=== PATIENT | female | born 1975 | race Caucasian/White ===

== ENCOUNTER 2017-07-22 10:39 | Emergency (ER) | payer MEDICARE, OTHER, SELFPAY ==
[2017-07-22 10:39] VITALS: BP 121/69; PULSE 101; RESP 16; TEMP 37.1; O2SAT 100; BMI 23.6
[2017-07-22] MEDS: Tetracaine 0.5% Ophthalmic Bottle 1 DRP EACH EYE (11:08)
--- NOTE | 2017-07-22 13:39 | NURSING ---
PAGED DR CORNEJO FOR DR MIR
--- NOTE | 2017-07-22 14:02 | ED.VISSUMM ---
- ER Visit Summary Date of Service: 07/22/17 Chief Complaint: Right eye pain, redness and drainage History of Present Illness: The patient is a 42 F who presents with right eye pain that started last evening. She removed her contact lenses. She states she has extended wear lenses. She leaves the lenses in for 1 month. She denied any colored drainage. She combines of a pressure sensation. There is no history of glaucoma. She does report light sensitivity. She denies headache, nausea or vomiting. There is no history of trauma. Please read written note for complete detail Physical Examination: Vital signs are remarkable heart rate 101. Visual acuity is 20/70 right eye, 20/200 left eye and 20/70 both eyes. The right eye is injected. These sclera is anicteric. The conjunctivae is slightly injected. There is no purulent drainage noted. There is photophobia to direct light but not consensual light. There is no preauricular lymphadenopathy. There is no evidence of a preseptal cellulitis. Slit-lamp examination was performed without use of floor seen since there is a national shortage. There is a circular corneal ulcer noted approximately 5:00 4-5 mm from the limbal border. There is no flare or cells noted anterior chamber. Test Results: None Emergency Department Course and Treatment: Visual acuity, slit-lamp examination and treatment with gentamicin Treatment Plan: Gentamicin ophthalmic drops 1-2 drops every 2-4 hours while awake and follow-up appointment with Dr. Laura Disposition: Charge to home. Patient has been told to call Dr. Laura's office after leaving the emergency department for an appointment tomorrow morning. Impression: Corneal ulcer secondary to extended-wear contacts This note was generated with [employer] dictation software. It may contain incorrect words, spelling, and punctuation that were not noted in review of the chart prior to signing ED Disposition - Plan for ED Patient: Disposition: Home or Assisted Living Chief Complaint: Eye Problem Instructions: ED Ulcer Cornea Referrals: Jesus Finch MD [Primary Care Provider] - Deng Laura MD [STAFF PHYSICIAN] - 1 Day for another exam Additional Instructions: Call Dr. Laura's office after leaving department for an appointment tomorrow morning. Instill 1-2 drops of gentamicin ophthalmic solution every 2-4 hours while awake
--- NOTE | 2017-07-22 14:09 | ED.DCSUM_ITS ---
- ER Visit Summary Date of Service: 07/22/17 Chief Complaint: Right eye pain, redness and drainage History of Present Illness: The patient is a 42 F who presents with right eye pain that started last evening. She removed her contact lenses. She states she has extended wear lenses. She leaves the lenses in for 1 month. She denied any colored drainage. She combines of a pressure sensation. There is no history of glaucoma. She does report light sensitivity. She denies headache , nausea or vomiting. There is no history of trauma. Please read written note for complete detail Physical Examination: Vital signs are remarkable heart rate 101. Visual acuity is 20/70 right eye, 20/200 left eye and 20/70 both eyes. The right eye is injected. These sclera is anicteric. The conjunctivae is slightly injected. There is no purulent drainage noted. There is photophobia to direct light but not consensual light. There is no preauricular lymphadenopathy. There is no evidence of a preseptal cellulitis. Slit-lamp examination was performed without use of floor seen since there is a national shortage. There is a circular corneal ulcer noted approximately 5:00 4 -5 mm from the limbal border. There is no flare or cells noted anterior chamber. Test Results: None Emergency Department Course and Treatment: Visual acuity, slit-lamp examination and treatment with gentamicin Treatment Plan: Gentamicin ophthalmic drops 1-2 drops every 2-4 hours while awake and follow-up appointment with Dr. Laura Disposition: Charge to home. Patient has been told to call Dr. Laura's office after leaving the emergency department for an appointment tomorrow morning. Impression: Corneal ulcer secondary to extended-wear contacts This note was generated with [employer] dictation software. It may contain incorrect words, spelling, and punctuation that were not noted in review of the chart prior to signing ED Disposition - Plan for ED Patient: Disposition: Home or Assisted Living Chief Complaint: Eye Problem Instructions: ED Ulcer Cornea Referrals: Jesus Finch MD [Primary Care Provider] - Deng Laura MD [STAFF PHYSICIAN] - 1 Day for another exam Additional Instructions: Call Dr. Laura's office after leaving department for an appointment tomorrow morning. Instill 1-2 drops of gentamicin ophthalmic solution every 2-4 hours while awake
[2017-07-22] MEDS: Gentamicin Sulfate 1 OPTH.BTL 2 DRP RIGHT EYE (14:20)
[2017-07-22 14:24] VITALS: BP 130/70; PULSE 85; RESP 14; O2SAT 99
== END 2017-07-22 14:25 | disposition home or self-care (01) ==
PROVIDERS: Emergency Provider Emergency Medicine; Family Provider Family Medicine; PCP Family Medicine
DX: H16.001 Unspecified corneal ulcer, right eye (principal); Z72.0 Tobacco use; F32.9 Major depressive disorder, single episode, unspecified
CPT/HCPCS: 96374; 96375; 99283

== ENCOUNTER → 2018-01-06 08:44 | Outpatient (CLI) | payer MEDICARE, OTHER, SELFPAY ==
[2018-01-06 09:51] LABS: Color, Urine Yellow (Yellow); Glucose, Dipstick Normal (Normal); Ketone-Dipstick 15 mg/dl (Negative); Leukocyte Esterase-Dipstick 25 /ul (Negative); Nitrite-Dipstick Negative (Negative); Occult Blood-Urine 150 /ul (Negative); Protein-Dipstick 15 mg/dl (Negative); Specific Gravity, Urine 1.015 (1.002-1.030); Urine Bilirubin Dipstick Negative (Negative); Urine Clarity Sl. Cloudy (Clear); Urine Urobilinogen 1 mg/dl (Normal); Urine pH 6.5 (5.0 - 8.0)
[2018-01-06 10:20] LABS: Absolute Lymphocyte Count 3.12 X10^3/ul (0.83-4.51); Absolute Neutrophil Count 6.8 X10^3/uL (2.0-7.7); Basophil# 0.06 X10^3/uL; Basophil% 0.5 % (0-1); Eosinophil# 0.31 X10^3/uL; Eosinophils% 2.8 % (0-5); Hematocrit 46.1 % (37-47); Hemoglobin 15.3 g/dl (12.0-15.0); Lymphocyte # 3.12 X10^3/ul (4.0); Lymphocyte % 28.4 % (19-41); Mean Corp Hgb Conc 33.2 g/gl (32-36); Mean Corpuscular Hgb 30.7 pg (27.0-32.0); Mean Corpuscular Volume 92.4 fL (81-99); Mean Platelet Vol. 11.9 fl (6.2-12.0); Monocyte# 0.65 X10^3/uL; Monocyte% 5.9 % (0-10); Neutrophil # 6.82 X10^3/uL (2.7-7.7); Neutrophil % 62.3 % (47-70); POSITIVE COUNT NO; POSITIVE DIFFERENTIAL NO; POSITIVE MORPHOLOGY NO; Platelet Count 286 K/mm3 (150-450); RBC Distribution Width CV 13.3 % (11.6-14.6); RBC Distribution Width SD 44.5 fl (35.1-43.9); Red Blood Count 4.99 M/mm3 (4.2-5.4)
[2018-01-06 10:45] LABS: ALB/GLOB Ratio 0.9 RATIO (0.9-2.4); AST(SGOT) 17 U/L (15-37); Alanine Aminotransfer ALT/SGPT 25 U/L (13-56); Albumin, Serum 3.7 g/dL (3.2-5.0); Alkaline Phosphatase 118 U/L (45-117); Anion Gap 7 (5-15); BUN 7 mg/dL (7-18); Calcium,Total 8.8 mg/dL (8.5-10.1); Chloride 106 mmol/L (98-107); Creatinine, Serum 0.63 mg/dL (0.55-1.02); EST Glomerular Filtration Rate 108 mL/min (>60); Est Glom Filt Rate - Afr Amer 131 mL/min (>60); Globulin 4.2 g/dL (2.2-4.2); Glucose 89 mg/dL (74-106); Potassium 3.9 mmol/L (3.5-5.1); Protein, Total 7.9 g/dL (6.4-8.2); Sodium Level 138 mmol/L (136-145)
== END ==
PROVIDERS: Family Provider Family Medicine; PCP Family Medicine; Visit Provider Family Medicine
DX: Z00.00 Encounter for general adult medical examination without abnormal findings (principal); N92.0 Excessive and frequent menstruation with regular cycle
CPT/HCPCS: 36415; 80053; 81002; 85025

== ENCOUNTER → 2018-02-07 11:25 | Outpatient (CLI) | payer MEDICARE, OTHER, SELFPAY ==
--- NOTE | 2018-02-07 11:36 | BI_ITS ---
MAMMOGRAPHY - BILATERAL SCREENING REASON FOR EXAM: Female, 42 years old. Routine annual screening examination. PERTINENT HISTORY: Grandmother with breast cancer. Aunt with breast cancer. Chronic breast tenderness. TECHNIQUE: Digital bilateral breast desire (3D mammographic acquisition) in the CC and MLO projections. 2-D mediolateral oblique (MLO) and craniocaudad (CC) views of both breasts were obtained. CAD: Full Field Digital Mammography with Computer Added Detection was performed. COMPARISON: Comparison is made with prior study dated April 28, 2016. FINDINGS: Breast Composition: The breasts are heterogeneously dense, which may obscure small masses. There are no dominant masses or suspicious calcifications. Stable appearance of the bilateral axillary lymph nodes. No other significant abnormalities are identified. There has been no significant change since the prior study. BI/SCREENING MAMM (CAD), BILAT IMPRESSION: Stable bilateral screening mammogram. Yearly follow-up mammogram recommended. (A) ASSESSMENT CATEGORY: BIRADS Category 2: Benign. A letter regarding these results will be sent to the patient by the facility within 30 days. Approximately 10% of breast cancers are not detected by mammography. A normal mammogram should not delay biopsy of a clinically suspicious abnormality. [id number] Electronically Signed: Jose Armando Poole MD at 13:36 EDT Tel [phone], Service support ,
== END ==
PROVIDERS: Family Provider Family Medicine; PCP Family Medicine; Visit Provider Family Medicine
DX: Z12.31 Encounter for screening mammogram for malignant neoplasm of breast (principal)
CPT/HCPCS: 77063; 77067

== ENCOUNTER → 2019-03-31 10:45 | Outpatient (CLI) | payer MEDICARE, OTHER, SELFPAY ==
--- NOTE | 2019-03-31 10:48 | BI_ITS ---
MAMMOGRAPHY - BILATERAL SCREENING REASON FOR EXAM: Female, 43 years old. Routine annual screening examination. PERTINENT HISTORY: Grandmother with breast cancer. Aunt with breast cancer. TECHNIQUE: Digital bilateral breast lincoln (3D mammographic acquisition) in the CC and MLO projections. 2-D mediolateral oblique (MLO) and craniocaudad (CC) views of both breasts were obtained. CAD: Full Field Digital Mammography with Computer Added Detection was performed. COMPARISON: Comparison is made with prior study dated February 07, 2018 and April 28, 2016. FINDINGS: Breast Composition: The breasts are heterogeneously dense, which may obscure small masses. There are no dominant masses or suspicious calcifications. No other significant abnormalities are identified. There has been no significant change since the prior study. BI/SCREEN MAMM (CAD) W/LINCOLN BILAT IMPRESSION: Stable bilateral screening mammogram. Yearly follow-up mammogram recommended. (A) ASSESSMENT CATEGORY: BIRADS Category 1: Negative. A letter regarding these results will be sent to the patient by the facility within 30 days. Approximately 10% of breast cancers are not detected by mammography. A normal mammogram should not delay biopsy of a clinically suspicious abnormality. [id number] Electronically Signed: Jose Armando Poole, at 9:33 EST , Service support ,
== END ==
PROVIDERS: Family Provider Family Medicine; PCP Family Medicine; Referring Provider Family Medicine; Visit Provider Family Medicine
DX: Z12.31 Encounter for screening mammogram for malignant neoplasm of breast (principal)
CPT/HCPCS: 77063; 77067

== ENCOUNTER → 2020-07-08 12:34 | Outpatient (CLI) | payer MEDICARE, OTHER, SELFPAY ==
--- NOTE | 2020-07-08 12:39 | BI_ITS ---
MAMMOGRAPHY - BILATERAL SCREENING REASON FOR EXAM: Female, 45 years old. Routine annual screening examination. PERTINENT HISTORY: Grandmother with breast cancer. Aunt with breast cancer. TECHNIQUE: Digital bilateral breast lincoln (3D mammographic acquisition) in the CC and MLO projections. 2-D mediolateral oblique (MLO) and craniocaudad (CC) views of both breasts were obtained. CAD: Full Field Digital Mammography with Computer Added Detection was performed. COMPARISON: Comparison is made with prior study dated 03/31/2019 and 02/07/2018. FINDINGS: Breast Composition: The breasts are heterogeneously dense, which may obscure small masses. There are no dominant masses or suspicious calcifications. No other significant abnormalities are identified. There has been no significant change since the prior study. BI/SCRN MAMM (CAD)W/LINCOLN BILAT IMPRESSION: Stable bilateral screening mammogram. Yearly follow-up mammogram recommended. (A) ASSESSMENT CATEGORY: BIRADS Category 1: Negative. A letter regarding these results will be sent to the patient by the facility within 30 days. Approximately 10% of breast cancers are not detected by mammography. A normal mammogram should not delay biopsy of a clinically suspicious abnormality. [id number] Electronically Signed: Jose Armando Poole MD at 13:45 EDT , Service support ,
== END ==
PROVIDERS: PCP Family Medicine; Referring Provider Family Medicine; Visit Provider Family Medicine
DX: Z12.31 Encounter for screening mammogram for malignant neoplasm of breast (principal)
CPT/HCPCS: 77063; 77067

== ENCOUNTER 2022-05-04 12:00 | Outpatient (RCR) | payer MEDICARE, OTHER, SELFPAY ==
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
--- NOTE | 2022-09-02 10:38 | HP.PT.NRP ---
LUCILLE KELLY was seen in my office for initial evaluation on 04/21/22. The following Plan of Care was established for this patient: Initial Frequency: 2x /Week Initial Duration: 4 Weeks Patient/Client Instruction: Educate patient on: Condition, Plan of Care For the Purpose of:: To decrease pain, To increase ROM, To improve muscle performance and motor function, To improve ability to perform ADL's, To increase tolerance to activity/condition/position, To improve ability of physical actions for home/community/work/leisure, To improve health of tissue, To decrease soft tissue restriction, To increase flexibility/ROM Therapeutic Exercise to Include: Strength training, Postural training, Flexibilty training, Active ROM, Scapular Strength/Stabilization For the Purpose of:: To decrease pain, To increase ROM, To improve muscle performance and motor function, To improve ability to perform ADL's, To increase tolerance to activity/condition/position, To improve performance and independence with ADL's, To improve ability of physical actions for home/community/work/leisure, To improve health of tissue, To decrease soft tissue restriction, To increase flexibility/ROM TENS: Yes IF ES: Yes Cryotherapy (ice pack, ice massage): Yes Thermo therapy (hot pack): Yes Ultrasound (thermal/non thermal): Yes For the Purpose of:: To decrease pain, To increase ROM, To improve nutrient delivery to tissue, To increase oxygenation perfusion, To improve health of tissue, To decrease soft tissue restriction, To increase flexibility/ROM This patient was last seen in our office . Pertinent comments regarding their Physical therapy will appear below: Patient seen for shoulder for right shoulder pain thus underwent s/p arthroscopic thus d/c At this point I will be discontinuing this patient from physical therapy. I would be happy to see this patient again in the future if found appropriate by the physician. Thank you! Gian Arciniega, PT, Cert MDT, OCS Balance/Gait/Functional tests - Balance/Special Test Scores Quick DASH Score: [phone]
== END 2022-05-04 19:00 | disposition home or self-care (01) ==
LOC: PT 12:00
PROVIDERS: PCP Family Medicine; Referring Provider Orthopaedic Surgery Sports Medicine; Visit Provider Orthopaedic Surgery Sports Medicine
DX: M75.41 Impingement syndrome of right shoulder (principal)
CPT/HCPCS: 97110; 97162

== ENCOUNTER → 2022-06-16 | Outpatient (CLI) | payer MEDICARE, OTHER, SELFPAY ==
--- NOTE | 2022-06-16 07:45 | MRI_ITS ---
STUDY: MRI RIGHT SHOULDER REASON FOR EXAM: Female, 47 years old. Shoulder pain. TECHNIQUE: Standardized fat and water weighted pulse sequences were obtained in all 3 orthogonal planes. COMPARISON: Shoulder x-rays dated March 29, 2022. FINDINGS: Supraspinatus tendinosis with marked thinning/attenuation. No full-thickness tear present (coronal series 6 images 9-12). Mild infraspinatus tendinosis with thinning without a full-thickness tear (coronal series 6 images 12-15). Subscapularis tendinosis with minimal articular surface fraying without a full-thickness tear (axial series 3 images 10-15). Normal teres minor tendon. Normal supraspinatus muscle. Normal infraspinatus muscle. Normal subscapularis muscle. Normal teres minor muscle. Mild thinning of the articular cartilage of the glenohumeral joint with a small glenohumeral joint effusion (axial series 3 images 10-15). Cystic change in the humeral head (coronal series 6 image 9). Normal biceps labral complex. Normal intracapsular long biceps tendon. Increased signal intensity within the superior labrum without a detached tear (coronal series 6 image 10). Normal capsulo- ligamentous complex. Normal rotator interval. Small AC joint effusion. Medial to lateral downsloping of the acromion with resulting narrowing of the subacromial space (coronal series 6 images 12-16). There is a Type II morphology (curved), with a neutral orientation. Small amount of fluid in the subacromial-subdeltoid bursa (coronal series 6 image 11). Normal visualized coracohumeral and coracoacromial ligaments. Normal quadrilateral space. Normal axillary space. Normal deltoid muscle. Normal trapezius muscle. MRI/Upper Ext Joint Only(Routine) IMPRESSION: Supraspinatus, infraspinatus and subscapularis tendinosis as described. No full thickness tear is present. Mild arthrosis of the glenohumeral joint. Cystic change in the humeral head. Focal increased signal intensity within the superior labrum without a detached tear. Small AC joint effusion. Medial to lateral downsloping of the acromion resulting in narrowing of the subacromial space. Small glenohumeral joint effusion with a small amount of fluid in the subacromial-subdeltoid bursa. Electronically Signed: Maurice Mota, at 15:43 EST ,
== END | disposition home or self-care (01) ==
LOC: MRI 07:34
PROVIDERS: PCP Family Medicine; Referring Provider Orthopaedic Surgery Sports Medicine; Visit Provider Orthopaedic Surgery Sports Medicine
DX: M75.41 Impingement syndrome of right shoulder (principal)
CPT/HCPCS: 73221

== ENCOUNTER 2022-07-14 05:56 | Day surgery (SDC) | payer MEDICARE, OTHER, SELFPAY ==
--- NOTE | 2022-07-12 13:47 | EKG12_ITS ---
Test Reason : PREOP Blood Pressure : / mmHG Vent. Rate : 082 BPM Atrial Rate : 082 BPM P-R Int : 134 ms QRS Dur : 084 ms QT Int : 358 ms P-R-T Axes : 066 062 052 degrees QTc Int : 418 ms Normal sinus rhythm Normal ECG Confirmed by MADYSON RECIO, ALEXEI ([id number]), editorial clerk ROMEO TUBBS ([id number]) on 07/13/2022 8:38:20 AM Referred By: Deng Davila Confirmed By:ALEXEI COUGHLIN MD
[2022-07-12 15:48] LABS: Hematocrit 47.4 % (37-47); Hemoglobin 15.6 g/dL (12.0-15.0); Mean Corp Hgb Conc 32.9 g/dL (32-36); Mean Corpuscular Hgb 31.6 pg (27.0-32.0); Platelet Count 241 K/mm3 (150-450); RBC Distribution Width CV 12.7 % (11.6-14.6); RBC Distribution Width SD 45.1 fl (35.1-43.9); Red Blood Count 4.94 M/mm3 (4.2-5.4); White Blood Count 12.8 K/mm3 (4.4-11.0)
[2022-07-12 15:56] LABS: International Normalized Ratio 0.9; Prothrombin Time (Protime)PT. 12.3 SECONDS (11.7-14.9)
[2022-07-12 15:57] LABS: Partial Thromboplast Time 29.2 Seconds (24.1-36.2)
[2022-07-12 16:14] LABS: AST(SGOT) 16 U/L (15-37); Alanine Aminotransfer ALT/SGPT 24 U/L (13-56); Albumin, Serum 3.9 g/dL (3.2-5.0); Alkaline Phosphatase 108 U/L (45-117); Anion Gap 4 (5-15); BUN 7 mg/dL (7-18); BUN/Creat Ratio 10.1 RATIO (10-20); Bilirubin, Direct 0.08 mg/dL (0.00-0.30); Calcium,Total 9.6 mg/dL (8.5-10.1); Chloride 107 mmol/L (98-107); Creatinine, Serum 0.69 mg/dL (0.55-1.02); EST Glomerular Filtration Rate 95 mL/min (>60); Est Glom Filt Rate - Afr Amer 115 mL/min (>60); Globulin 3.8 g/dL (2.2-4.2); Glucose 93 mg/dL (74-106); Potassium 4.3 mmol/L (3.5-5.1); Protein, Total 7.7 g/dL (6.4-8.2); Sodium Level 140 mmol/L (136-145)
[2022-07-14] VITALS (7 sets, daily range): BP systolic 112–146; BP diastolic 63–117; PULSE 85–96; RESP 16; TEMP 36.1–36.4; O2SAT 87–98; BMI 21.8
[2022-07-14] MEDS: Lactated Ringers 1,000 ML 15 ML IV (06:23)
--- NOTE | 2022-07-14 07:09 | PCM.HP.STD ---
HPI - General HPI Narrative LUCILLE KELLY, is a 47 F who presents for right shoulder arthroscopy, SAD possible RCR. OK to proceed. No changes to h and P. Right shoulder marked. Plan for block. Post op care and narcotic counselling. no further questions. MR#: [id number] Acct: [id number] Name:LUCILLE BUTT Rep #: [id number] : 1975 ? ? Provider: Dr. Deng Davila MD Age/Sex:? 47/F ? ? Location: [facility] – [place] Status: Signed Intake Intake Visit Reasons:?shouder pain Chief Complaint: right shoulder Allergies No Known Allergies Allergy (Verified 06/22/22 14:11) Medications duloxetine 60 mg capsule,delayed release 60 mg PO DAILY 07/22/17 [History Confirmed 06/22/22] gabapentin 800 mg tablet 800 mg PO TIDCM 07/22/17 [History Confirmed 06/22/22] cholecalciferol (vitamin D3) 25 mcg (1,000 unit) capsule 25 mcg PO DAILY 03/29/22 [History Confirmed 06/22/22] fluticasone propionate 50 mcg/actuation nasal spray,suspension 1 spray intranasal DAILY 03/29/22 [History Confirmed 06/22/22] magnesium aspartate HCl 61 mg (615 mg) tablet,delayed release 60 mg PO DAILY 03/29/22 [History Confirmed 06/22/22] thyroid (pork) 60 mg tablet ([place] Thyroid) 60 mg PO DAILY 03/29/22 [History Confirmed 06/22/22] PFSH Medical History? Internal impingement of right shoulder Right shoulder pain Social History? Smoking Status:? Current every day smoker HPI shouder pain Details: Parts of this documentation were recorded by a scribe, this documentation accurately reflects the service provided and the decisions made by me, Dr. Deng Davila MD 06/22/22 [id number]. LUCILLE KELLY is a 47 year old F here today for? fu right shoulder MRI for ongoing pain despite PT and cortisone injection.? Patient continues to have pain on the side of the shoulder going down the arm worse at night worse with lifting the have to do quite a bit of repetitive motion with her job. Ortho Exam General General: Yes no acute distress Neurologic: Yes alert and Yes oriented x3 Psychologic: Yes reasonable and appropriate Right Shoulder Skin/Wound: Yes CDI, No ecchymosis, No erythema and No swelling Testing: Positive Hawkin's, Neer's, AROM-Forward Elevation 0-180, AROM-External Rotation at side 0-60 and empty can; Negative Speed's, TTP Biceps, TTP AC Joint, Drop Arm or cross arm SHOULDER: strength fe and er 4+ Supplemental Info MR#:? [id number] Acct: [id number] Name:? LUCILLE KELLY Rep #: [id number] :?? 1975 F 47 ? From:? ? Maurice Mota MD PCP: Dr. Jesus Finch MD ? Status: REG CLI Study: Upper Ext? Joint Only(Routine) ? Date of Exam: 06/16/22 Exam# [id number] ? Ordering Dr:? Deng Davila MD STUDY: ? MRI RIGHT SHOULDER REASON FOR EXAM: ? Female, 47 years old.? Shoulder pain. TECHNIQUE: ? Standardized fat and water weighted pulse sequences were obtained in all 3 orthogonal planes. COMPARISON: ? Shoulder x-rays dated March 29, 2022. FINDINGS: Supraspinatus tendinosis with marked thinning/attenuation. No full-thickness tear present (coronal series 6 images 9-12). Mild infraspinatus tendinosis with thinning without a full-thickness tear (coronal series 6 images 12-15). Subscapularis tendinosis with minimal articular surface fraying without a full-thickness tear (axial series 3 images 10-15). Normal teres minor tendon. Normal supraspinatus muscle.? Normal infraspinatus muscle.? Normal subscapularis muscle.? Normal teres minor muscle. Mild thinning of the articular cartilage of the glenohumeral joint with a small glenohumeral joint effusion (axial series 3 images 10-15).? Cystic change in the humeral head (coronal series 6 image 9).? Normal biceps labral complex.? Normal intracapsular long biceps tendon.? Increased signal intensity within the superior labrum without a detached tear (coronal series 6 image 10).? Normal capsulo- ligamentous complex.? Normal rotator interval. Small AC joint effusion. Medial to lateral downsloping of the acromion with resulting narrowing of the subacromial space (coronal series 6 images 12-16).? There is a Type II morphology (curved), with a neutral orientation. Small amount of fluid in the subacromial-subdeltoid bursa (coronal series 6 image 11). Normal visualized coracohumeral and coracoacromial ligaments.? Normal quadrilateral space.? Normal axillary space. Normal deltoid muscle.? Normal trapezius muscle. MRI/Upper Ext? Joint Only(Routine) IMPRESSION: Supraspinatus, infraspinatus and subscapularis tendinosis as described. No full thickness tear is present. ? Mild arthrosis of the glenohumeral joint. ? Cystic change in the humeral head. ? Focal increased signal intensity within the superior labrum without a detached tear. ? Small AC joint effusion. ? Medial to lateral downsloping of the acromion resulting in narrowing of the subacromial space. ? Small glenohumeral joint effusion with a small amount of fluid in the subacromial-subdeltoid bursa. ? Electronically Signed: Maurice Mota, at 15:43 EST , agree with interpretation, possible insertional fraying of SS> Coding Level of Care Code Off vis,est,level 4 Diagnoses Internal impingement of right shoulder? M75.41 Right shoulder pain? M25.511 Assessment and Plan Assessment and Plan (1) Internal impingement of right shoulder: ?Status:?Acute ?Plan: 47-year-old female with continued right shoulder pain no MRI evidence of rotator cuff tears although there may be some insertional fraying of the supraspinatus tendon.? No obvious pain at the AC joint negative cross body adduction test.? Patient has failed conservative management including injections and therapy and wishes to go ahead with surgical solution to this.? Surgery would be right shoulder arthroscopy, subacromial decompression, possible rotator cuff repair.? Patient is a smoker that will increase the risks of infection and other complications as well as has a history of CRPS which may increase the risk for pain and other complications. Pros and cons risks and benefits were discussed with the patient including but not limited to infection, pain, stiffness, bleeding, damage to surrounding structures, neurovascular injury, recurrence or retear, failure or wear of hardware or fixation, instability, fracture, deep vein thrombosis and pulmonary embolism, anesthetic risks, patient dissatisfaction, , need for further surgery and other risks.? Patient understood and wished to proceed with surgery, and signed the informed consent documentation. [facility] Medical History (Updated 07/07/22 @ 15:00 by Annabelle Khan) Alcohol use Back pain Bladder disease Complex regional pain syndrome Complex regional pain syndrome of both lower extremities Easy bruising Heartburn History of edema History of pain when walking History of steroid therapy History of ulceration History of uterine fibroid Injury of head and neck Internal impingement of right shoulder Leg cramps Marijuana use Migraine headache Restless legs Right shoulder pain Smoker Thyroid disease Wears dentures Wears glasses Home Medications duloxetine 60 mg capsule,delayed release 60 mg PO DAILY 07/22/17 [History Last Taken Unknown] gabapentin 800 mg tablet 800 mg PO BID 07/22/17 [History Last Taken Unknown] cholecalciferol (vitamin D3) 25 mcg (1,000 unit) capsule 25 mcg PO DAILY 03/29/22 [History Last Taken Unknown] fluticasone propionate 50 mcg/actuation nasal spray,suspension 1 spray intranasal DAILY 03/29/22 [History Last Taken Unknown] thyroid (pork) 60 mg tablet ([place] Thyroid) 60 mg PO DAILY 03/29/22 [History Last Taken 07/14/22 05:00] Allergy/AdvReac Type Severity Reaction Status Date / Time No Known Allergies Allergy Verified 07/07/22 14:39 Surgical History (Updated 07/07/22 @ 14:51 by Annabelle Khan) Hx of dilation and curettage Hx of exploratory laparotomy Hx of tubal ligation Social History Smoking Status: Current every day smoker tobacco type: cigarettes Vital Signs Vital Signs Vital Signs: 07/14/22 06:14 07/14/22 06:14 Temperature 97.5 F L Temperature Source Temporal Pulse Rate 86 Respiratory Rate 16 Respiratory Pattern Normal Blood Pressure 115/71 Blood Pressure Mean 85 Blood Pressure Source Monitor Blood Pressure Position Semi-Fowlers Blood Pressure Location Left Arm Pulse Ox 98 Oxygen Delivery Method Room Air Weight Weight: 108 lb 0.424 oz Body Mass Index (BMI) 21.8 Results Lab / Micro Data Result Diagrams: 07/12/22 14:26 07/12/22 14:26
[2022-07-14] MEDS: Cefazolin 2 GM in 0.9% Normal Saline 100 ML IV (07:29)
[2022-07-14] MEDS: Epinephrine (1 mg/ml) 1 MG/ML VIAL 2 MG OPERA.SITE (08:00)
--- NOTE | 2022-07-14 08:42 | OP.PCM_ITS ---
Problems Associated Problem List Diagnoses (1) Internal impingement of right shoulder: (2) Right shoulder pain: Report of Operation Date of Procedure: 07/14/22 Pre-Operative Diagnosis: right shoulder impingement syndrome Post-Operative Diagnosis: same Surgery/Procedure Performed:: right shoulder arthroscopy, subacromial decompression, bursectomy Surgeon: Deng Davila Type of Anesthesia: Block,Regional and General Anesthesiologist: Felice Kevin Estimated Blood Loss (mL): 50 Description of Procedure: Patient brought to the operating room theater.? Administered general anesthetic.? Placed right side up lateral decubitus.? All bony prominences padded.? Axillary roll used.? Beanbag positioner used.? SCDs on the legs.? Right upper extremity prepped and draped in the usual sterile fashion chlorhexidine- based prep solution allowing over 3 minutes drying time prior to draping.? 2 iv ancef given prior to the start of the procedure.? Preoperative timeout performed to confirm the site patient and surgery. Patient's upper extremity was placed in 30 degrees of abduction with the 5 pounds traction in line with the star sleeve positioner.? Began by inserting the arthroscope into the intra-articular portion of the shoulder, standard posterior portal.? Did a diagnostic arthroscopy.? Cartilage on both sides mild softening, grade 1 changes. Subscapularis appeared normal.? Biceps was not present.? Created anterior portal inside out spinal needle localized, in rotator interval. Gentle debridement of frayed tissue from labrum, no tears. Undersurface of cuff appeared normal, albeit thin as on MRI. Axillary recess normal, no loose bodies. I then passed the arthroscope into the subacromial space.? I performed a bursectomy for moderate amount of inflammatory bursitis, especially at the bursal surface of the cuff and laterally. Shoulder quite inflamed, ensured to cauterize any bleeding, meticulous hemostasis but quite irritated. I then performed a subacromial decompression of the anterior inferior leading edge of the acromion to flat margins of about 4 mm.? Again probed the cuff, no tears. Final pictures taken and saved onto the system.? Case terminated.? Shoulder thoroughly irrigated.? Wounds cleaned wet and dry dressing followed by closure of the portals with 3-0 Monocryl sutures Steri-Strips Adaptic 4 x 4 gauze abdominal pad dressings and cloth tape with a sling for the upper extremity. Patient woken up from the general anesthetic transferred off the operating room table and taken to postanesthetic care unit in stable condition.? All sponge needle instrument counts correct no complications.? Plan for the patient discharged home according to day surgery criteria. Admit VTE Documentation VTE Present on Admission: No VTE Mechan Device Prophylaxis: SCD's VTE Pharm Prophylaxis ordered?: No Reason prophylaxis not ordered:: Treatment Not Indicated Procedures Musculoskeletal [id number]-29xxx: Other Procedure See Report
--- NOTE | 2022-07-14 08:47 | DCINST_ITS ---
Discharge Instructions Diet Discharge Diet: No restrictions Activity Ice area for (Minutes): 10 Lifting Restrictions: pendulums four times a day, ok to do hand wrist elbow ROM Dressing / Incision Call your doctor if your incision/area has: Continuous Slow Oozing, Sudden Increased Bleeding, Increased Pain/ Swelling, Increased Redness, Foul Smelling Discharge and Swelling at the incision site Change Dressing in: leave in place till F/U Follow Up Care Please Follow Up With: Deng Davila MD When: 2 DAYS Test Results: Test results from this visit will be discussed in further detail at your follow- up appointment, if applicable. Discharge Plan Admission Attending Provider: Deng Davila Primary Care Provider: Jesus Finch Instructions Patient Instructions: After Shoulder Arthroscopy Discharge Orders/Prescriptions Prescriptions: New hydrocodone-acetaminophen 5-325 mg tablet 1 tab PO Q6H MDD 6 PRN (Reason: pain) 5 Days Qty: 30 0RF No Action thyroid (pork) [[place] Thyroid] 60 mg tablet 60 mg PO DAILY cholecalciferol (vitamin D3) 25 mcg (1,000 unit) capsule 25 mcg PO DAILY fluticasone propionate 50 mcg/actuation spray,suspension 1 spray intranasal DAILY Rx Instructions: administer into each nostril gabapentin 800 MG tablet 800 mg PO BID duloxetine 60 MG capsule 60 mg PO DAILY Referrals / Follow Up: Jesus Finch MD [Primary Care Provider] - Deng Davila MD [Med Staff - Active Staff] - Disposition Disposition (needs filled in before D/C Order can be placed): Home, Self Care
== END 2022-07-14 10:22 | disposition home or self-care (01) ==
LOC: SDC 06:01 → AC 06:02
PROVIDERS: Anesthesiology; PCP Family Medicine; Referring Provider Orthopaedic Surgery Sports Medicine; Visit Provider Orthopaedic Surgery Sports Medicine
PROC: (CPT 29805; principal; 2022-07-14 07:10)
DX: M19.011 Primary osteoarthritis, right shoulder (principal); M75.81 Other shoulder lesions, right shoulder; F17.210 Nicotine dependence, cigarettes, uncomplicated; M75.41 Impingement syndrome of right shoulder; R23.3 Spontaneous ecchymoses
CPT/HCPCS: 29826; 29822; 36415; 80048; 80076; 85027; 85610; 85730; 93005; J7120; J2405

== ENCOUNTER → 2023-11-29 | Outpatient (CLI) | payer MEDICARE, OTHER, SELFPAY ==
--- NOTE | 2023-11-29 14:42 | BI_ITS ---
MAMMOGRAPHY - BILATERAL SCREENING REASON FOR EXAM: Female, 48 years old. Routine annual screening examination. PERTINENT HISTORY: Grandmother with breast cancer. Aunt with breast cancer. TECHNIQUE: Digital bilateral breast lincoln (3D mammographic acquisition) in the CC and MLO projections. 2-D mediolateral oblique (MLO) and craniocaudad (CC) views of both breasts were obtained. CAD: Full Field Digital Mammography with Computer Added Detection was performed. COMPARISON: Comparison is made with prior study July 08, 2020 and March 31, 2019. FINDINGS: Breast Composition: The breasts are heterogeneously dense, which may obscure small masses. There are no dominant masses or suspicious calcifications. No other significant abnormalities are identified. There has been no significant change since the prior study. BI/SCRN MAMM (CAD)W/LINCOLN BILAT IMPRESSION: Stable bilateral screening mammogram. Yearly follow-up mammogram recommended. (A) ASSESSMENT CATEGORY: BIRADS Category 1: Negative. A letter regarding these results will be sent to the patient by the facility within 30 days. Approximately 10% of breast cancers are not detected by mammography. A normal mammogram should not delay biopsy of a clinically suspicious abnormality. [id number] Electronically Signed: Jose Armando Poole MD at 15:20 EDT ,
== END | disposition home or self-care (01) ==
LOC: OPBI 14:41
PROVIDERS: PCP Family Medicine; Referring Provider Nurse Practitioner Women's Health; Visit Provider Nurse Practitioner Women's Health
DX: Z12.31 Encounter for screening mammogram for malignant neoplasm of breast (principal); Z80.3 Family history of malignant neoplasm of breast
CPT/HCPCS: 77063; 77067